=== PATIENT | male | born 1975 | race Caucasian/White ===

== ENCOUNTER 2016-02-22 21:12 | Emergency (ER) | payer SELFPAY ==
--- NOTE | 2016-02-22 21:24 | ER Document Report ---
ED Medical Screen (RME) - General Stated Complaint: LEFT JAW PAIN Notes: Pain to right maxillary sinus I greeted and performed a rapid initial assessment of this patient. Comprehensive ED assessment and evaluation of the patient, analysis of test results and completion of the medical decision making process will be conducted by additional ED providers. TRAVEL OUTSIDE OF THE [place] IN LAST 30 DAYS: No - Related Data Allergies/Adverse Reactions: No Known Allergies Allergy (Verified 12/01/14 22:27) Past Medical History - Immunizations Hx Diphtheria, Pertussis, Tetanus Vaccination: Yes
[2016-02-22] MEDS ORDERED: AMOXICILLIN TRIHYDRATE 500 MG CAPSULE PO ONE (21:48)
[2016-02-22] MEDS ORDERED: HYDROCODONE/ACETAMINOPHEN 5-325 MG TABLET PO ONE (21:48)
--- NOTE | 2016-02-22 21:52 | ER Document Report ---
HPI - HPI Patient complains to provider of: sinus pain, epistaxis Pain Level: 4 Context: Patient is a 40-year-old male that comes emergency department for chief complaint of pain in his sinuses, worse on the left side. Patient states he has been having this for several days but today became significantly more painful. He denies fevers. He states that he has been taking a combination [id number] medication, states that he blew his nose earlier and noticed he had bleeding and blood clots, the nosebleed has stopped. He smokes occasionally, denies any daily medications or any other medical history. - DERM Skin Color: Normal Past Medical History - General Information source: Patient - Social History Smoking Status: Current Every Day Smoker Smoking Education Provided: Yes - <3 min Frequency of alcohol use: None Drug Abuse: None Lives with: Family Family History: Reviewed & Not Pertinent Patient has suicidal ideation: No Patient has homicidal ideation: No - Medical History Medical History: Negative Renal/ Medical History: Denies: Hx Peritoneal Dialysis Surgical Hx: Negative - Immunizations Hx Diphtheria, Pertussis, Tetanus Vaccination: Yes Vertical Provider Document - CONSTITUTIONAL General Appearance: WD/WN, No Apparent Distress - INFECTION CONTROL TRAVEL OUTSIDE OF THE [place] IN LAST 30 DAYS: No - HEENT HEENT: Atraumatic, Normocephalic. negative: Normal ENT Exam - tender over left maxillary sinus. No epistaxis noted, no dried blood, no other abnormality noted - NECK Neck: Normal Inspection - RESPIRATORY Respiratory: Breath Sounds Normal, No Respiratory Distress - CARDIOVASCULAR Cardiovascular: Regular Rate, Regular Rhythm - GI/ABDOMEN Gastrointestinal: Abdomen Soft, Abdomen Non-Tender - MUSCULOSKELETAL/EXTREMETIES Musculoskeletal/Extremeties: MAEW, FROM, Non-Tender - NEURO Level of Consciousness: Awake, Alert, Appropriate - DERM Integumentary: Warm, Dry, No Rash Course - Re-evaluation Re-evalutation: No evidence of epistaxis, patient states he's been taking combination medication with antihistamines, most likely capillary bed that was bleeding. She does have sinus tenderness, guarding on amoxicillin. Discussed smoking cessation, patient states that he will attempt to do this. Discussed follow-up with primary care and return precautions. Patient states understanding and agreement. Discharge - Discharge Clinical Impression: Epistaxis Sinusitis Qualifiers: Sinusitis location: maxillary Chronicity: acute Recurrence: non-recurrent Qualified Code(s): J01.00 - Acute maxillary sinusitis, unspecified Condition: Stable Disposition: HOME, SELF-CARE Additional Instructions: Take the amoxicillin antibiotic for your sinus infection as directed. Take ibuprofen or Tylenol for pain. Take the Sudafed as directed, stop smoking, stop the combination medication because of the antihistamine (trying to not have recurrence of the nosebleed). See additional instructions for nosebleed below. Follow-up with primary care. Return to emergency department for any concerning or worsening symptoms. There is a significant chance of re-bleeding following a nosebleed. Proper care makes this less likely. Do not touch the nose for 24 hours. Do not blow the nose forcefully for one week. After 24 hours, gently apply Vaseline ointment to both nostrils with the tip of a finger, three times a day, for one week. It's normal to have a bloody mucous discharge for a few days. If active bleeding recurs, blow all the blood from the nose, then sit quietly and pinch the nose as firmly as possible for 10 minutes. If this does not stop the bleeding, return for further care. If packing was left in the nose and it starts to come out of the nostril, either tuck it back in or cut it off. Don't pull it out. Return for recheck and removal of the packing when instructed. Persons with frequent nosebleeds should avoid aspirin (unless prescribed for another reason). Humidity in the bedroom, and petroleum jelly applied to the nostrils at night may help. Prescriptions: Amoxicillin Trihydrate [Amoxil 875 mg Tablet] 1 tab PO BID #20 tablet Pseudoephedrine HCl [Sudafed 12-Hour] 120 mg PO Q12 #20 tablet.sa
[2016-02-23 05:03] VITALS: BP 111/72
== END 2016-02-22 22:53 | disposition home or self-care (01) ==
LOC: ER 21:12
DX: R04.0 Epistaxis (principal); J01.00 Acute maxillary sinusitis, unspecified; F17.210 Nicotine dependence, cigarettes, uncomplicated
CPT/HCPCS: 99283